=== PATIENT | female | born 1985 | race Caucasian/White ===

== ENCOUNTER 2018-07-09 11:12 | Emergency (ER) | payer BC ==
[~2018-07-09] VITALS: Ht 167.6 cm; Wt 85.0 kg
[2018-07-09 13:30] LABS: CHLORIDE 107 mEq/L (98-107)
[2018-07-09 13:35] LABS: BASOPHILS % 0.9 % (0.0-2.0); EOSINOPHILS % 2.7 % (0.0-5.0); HEMATOCRIT. 39.9 % (36.0-48.0); HEMOGLOBIN. 13.5 g/dL (12.0-16.0); LYMPHOCYTES % 27.5 % (20.0-50.0); MEAN CORPUSCULAR HEMOGLOBIN 28.4 pg (28.0-32.0); MEAN CORPUSCULAR VOLUME 84.1 fL (81.0-99.0); MEAN PLATELET VOLUME 7.3 fl (7.4-10.4); MONOCYTES % 6.5 % (2.0-8.0); NEUTROPHILS % 62.4 % (40.0-76.0); PLATELET 275 x1000/uL (130-400); RED BLOOD CELL COUNT 4.75 mill/uL (4.2-5.4); RED CELL DISTRIBUTION WIDTH 14.1 % (11.6-14.6)
[2018-07-09 13:53] LABS: B-HCG QUANTITATIVE 11653 mIU/mL (<3)
[2018-07-09 13:55] VITALS: BP 128/86
== END 2018-07-09 14:32 | disposition home or self-care (01) ==
LOC: ER 11:46
DX: O02.1 Missed abortion (principal); J45.909 Unspecified asthma, uncomplicated; Z3A.08 8 weeks gestation of pregnancy
CPT/HCPCS: 36415; 76801; 81025; 84702; 86850; 86900; 99284

== ENCOUNTER 2018-08-03 07:49 | Inpatient (IN) | payer BC ==
[~2018-08-03] VITALS: Ht 170.2 cm; Wt 89.8 kg
[2018-08-03] MEDS ORDERED: ACETAMINOPHEN 325MG TABLET PO STA (09:42)
[2018-08-03] MEDS ORDERED: PIPERACILLIN/TAZ 3.375G PREMIX 50 ML IV ONE (09:45)
[2018-08-03] MEDS ORDERED: SODIUM CHLORIDE 0.9% 1000ML BAG (SEPSIS BOLUS) IV ONE (09:45)
[2018-08-03] MEDS ORDERED: VANCOMYCIN 1 G PREMIX 200 ML IV ONE (09:45)
[2018-08-03 11:09] LABS: HEMATOCRIT. 41.8 % (36.0-48.0); HEMOGLOBIN. 13.8 g/dL (12.0-16.0); MEAN CORPUSCULAR HEMOGLOBIN 27.4 pg (28.0-32.0); MEAN CORPUSCULAR VOLUME 83.1 fL (81.0-99.0); MEAN PLATELET VOLUME 7.4 fl (7.4-10.4); PLATELET 249 x1000/uL (130-400); RED BLOOD CELL COUNT 5.03 mill/uL (4.2-5.4); RED CELL DISTRIBUTION WIDTH 13.7 % (11.6-14.6)
[2018-08-03 11:18] LABS: INR 1.2; PROTHROMBIN TIME 12.4 sec (9.1-11.1)
[2018-08-03 11:38] LABS: PLATELET ESTIMATE NORMAL
[2018-08-03 11:39] LABS: CHLORIDE 103 mEq/L (98-107)
[2018-08-03 11:43] LABS: HCG SCREEN NEGATIVE
[2018-08-03 12:01] LABS: CLARITY URINE TURBID (CLEAR); COLOR URINE DARK YELLOW (YELLOW); KETONES URINE NEGATIVE (NEGATIVE); LEUKOCYTE ESTERASE URINE 1+ (NEGATIVE); NITRITE URINE NEGATIVE (NEGATIVE); OCCULT BLOOD URINE 3+ (NEGATIVE); PH URINE 5.5 (4.5-8.0); PROTEIN URINE 3+ (NEGATIVE); SPECIFIC GRAVITY URINE 1.039 (1.005-1.030)
[2018-08-03] MEDS ORDERED: KETOROLAC 30MG/ML VIAL IV ONE (13:00)
[2018-08-03] MEDS ORDERED: ZOLPIDEM TARTRATE 5MG TABLET PO PRN (13:15)
[2018-08-03] MEDS ORDERED: DOCUSATE SODIUM 100MG CAPSULE PO PRN (13:15)
[2018-08-03] MEDS ORDERED: ACETAMINOPHEN 325MG TABLET PO PRN (13:15)
[2018-08-03] MEDS ORDERED: NA PHOS,M-B/NA PHOS,DI-BA ENEMA 118ML PR PRN (13:15)
[2018-08-03] MEDS ORDERED: IPRATROPIUM/ALBUTEROL 0.5-3(2.5)MG/3ML NEB INH PRN (13:15)
[2018-08-03] MEDS ORDERED: GUAIFENESIN 200MG/10ML SUGAR FREE UDC PO PRN (13:15)
[2018-08-03] MEDS ORDERED: LORAZEPAM 0.5MG TABLET PO PRN (13:15)
[2018-08-03] MEDS ORDERED: ONDANSETRON HCL 4MG/2ML INJ IV PRN (13:15)
[2018-08-03] MEDS ORDERED: MAGNESIUM/ALUMINUM HYDROXIDE/SIMETHICONE 30ML UDC PO PRN (13:15)
[2018-08-03] MEDS ORDERED: NITROGLYCERIN 0.4MG TABLET SL SL PRN (13:15)
[2018-08-03] MEDS ORDERED: CLONIDINE 0.1MG TABLET PO PRN (13:15)
[2018-08-03] MEDS ORDERED: ACETAMINOPHEN 325MG TABLET ONE (14:40)
[2018-08-03 21:10] LABS: *AMPHETAMINES SCREEN URINE NEGATIVE (NEGATIVE); *BARBITURATES SCREEN URINE NEGATIVE (NEGATIVE); *BENZODIAZEPINES SCREEN URINE NEGATIVE (NEGATIVE); *COCAINE SCREEN URINE NEGATIVE (NEGATIVE); METHADONE URINE SCREEN NEGATIVE (NEGATIVE); OPIATES URINE SCREEN NEGATIVE (NEGATIVE)
[2018-08-03 21:11] LABS: CANNABINOID URINE SCREEN NEGATIVE (NEGATIVE); PHENCYCLIDINE URINE SCREEN NEGATIVE (NEGATIVE)
[2018-08-03] MEDS ORDERED: PIPERACILLIN/TAZ 3.375G PREMIX 50 ML IV NR (21:30)
[2018-08-03] MEDS: FAMOTIDINE 20MG TABLET PO SCH (21:31)
[2018-08-03 21:40] VITALS: BP 110/71
[2018-08-03 22:00] VITALS: BP 110/71
[2018-08-03] MEDS: SODIUM CHLORIDE 0.9% 1,000 ML IV SCH (23:23)
[2018-08-03] MEDS: ASCORBIC ACID 500 MG TABLET PO SCH (23:23)
[2018-08-04] VITALS: BP 107/59
[2018-08-04] MEDS: VANCOMYCIN 1 G PREMIX 200 ML IV SCH ×3 (00:04→14:28)
[2018-08-04] MEDS: KETOROLAC 15MG/ML VIAL IV PRN ×2 (02:23→21:14)
[2018-08-04 04:00] VITALS: BP 99/56
[2018-08-04] MEDS: PIPERACILLIN/TAZ 3.375G PREMIX 50 ML IV SCH ×2 (05:14→13:03)
[2018-08-04 08:00] VITALS: BP 110/70
[2018-08-04] MEDS: ASCORBIC ACID 500 MG TABLET PO SCH ×2 (09:27→21:15)
[2018-08-04] MEDS: ZINC SULFATE 220 MG ( 50 ) CAPSULE PO SCH (09:27)
[2018-08-04] MEDS: FAMOTIDINE 20MG TABLET PO SCH ×2 (09:27→21:15)
[2018-08-04] MEDS: SODIUM CHLORIDE 0.9% 1,000 ML IV SCH (09:28)
[2018-08-04 12:00] VITALS: BP 122/87
[2018-08-04 16:00] VITALS: BP 125/78
[2018-08-04 17:48] LABS: CHLORIDE 112 mEq/L (98-107)
[2018-08-04 17:56] LABS: VANCOMYCIN TROUGH 38.6 ug/mL (5.0-10.0)
[2018-08-04 20:00] VITALS: BP 117/85
[2018-08-04] MEDS: DIPHENHYDRAMINE 25MG CAPSULE PO PRN (21:15)
[2018-08-05] VITALS: BP 96/62
[2018-08-05] MEDS: VANCOMYCIN 1 G PREMIX 200 ML IV SCH ×2 (02:41→05:23)
[2018-08-05] MEDS: PIPERACILLIN/TAZ 3.375G PREMIX 50 ML IV SCH ×3 (02:41→16:32)
[2018-08-05] MEDS: SODIUM CHLORIDE 0.9% 1,000 ML IV SCH ×2 (02:42→16:33)
[2018-08-05 04:00] VITALS: BP 106/73
[2018-08-05 05:56] LABS: CHLORIDE 112 mEq/L (98-107)
[2018-08-05 06:05] LABS: VANCOMYCIN TROUGH 29.8 ug/mL (5.0-10.0)
[2018-08-05 08:22] VITALS: BP 108/71
[2018-08-05] MEDS: ASCORBIC ACID 500 MG TABLET PO SCH ×2 (08:23→21:56)
[2018-08-05] MEDS: ZINC SULFATE 220 MG ( 50 ) CAPSULE PO SCH (08:23)
[2018-08-05] MEDS: TRAMADOL 50MG TABLET PO PRN (08:23)
[2018-08-05] MEDS: FAMOTIDINE 20MG TABLET PO SCH ×2 (08:23→21:56)
[2018-08-05] MEDS: DIPHENHYDRAMINE 25MG CAPSULE PO PRN (09:42)
[2018-08-05 12:30] VITALS: BP 100/65
[2018-08-05] MEDS: SUCRALFATE 1G TABLET PO SCH ×3 (12:59→21:56)
[2018-08-05 16:00] VITALS: BP 110/72
[2018-08-05] MEDS ORDERED: PIPERACILLIN/TAZOBACTAM 3.375 G in DEXTROSE 5% WATER 50 ML IV SCH (16:00)
[2018-08-05] MEDS: VANCOMYCIN 1250MG in DEXTROSE 5% WATER 250ML IV SCH (17:20)
[2018-08-05 20:00] VITALS: BP 108/67
[2018-08-06] VITALS (7 sets, daily range): BP systolic 100–121; BP diastolic 58–77
[2018-08-06] MEDS: PIPERACILLIN/TAZ 3.375G PREMIX 50 ML IV SCH ×3 (00:31→16:17)
[2018-08-06] MEDS: SODIUM CHLORIDE 0.9% 1,000 ML IV SCH ×3 (00:32→20:30)
[2018-08-06] MEDS: VANCOMYCIN 1250MG in DEXTROSE 5% WATER 250ML IV SCH ×2 (05:28→19:09)
[2018-08-06] MEDS: KETOROLAC 15MG/ML VIAL IV PRN (05:33)
[2018-08-06] MEDS: FAMOTIDINE 20MG TABLET PO SCH ×2 (10:20→21:12)
[2018-08-06] MEDS: SUCRALFATE 1G TABLET PO SCH ×4 (10:20→21:12)
[2018-08-06] MEDS: ASCORBIC ACID 500 MG TABLET PO SCH ×2 (10:20→21:12)
[2018-08-06] MEDS: ZINC SULFATE 220 MG ( 50 ) CAPSULE PO SCH (10:20)
[2018-08-06 10:35] LABS: BASOPHILS % 0.7 % (0.0-2.0); HEMATOCRIT. 34.8 % (36.0-48.0); HEMOGLOBIN. 11.5 g/dL (12.0-16.0); LYMPHOCYTES % 37.7 % (20.0-50.0); MEAN CORPUSCULAR HEMOGLOBIN 27.7 pg (28.0-32.0); MEAN CORPUSCULAR VOLUME 83.2 fL (81.0-99.0); MONOCYTES % 6.3 % (2.0-8.0); NEUTROPHILS % 52.3 % (40.0-76.0); PLATELET 239 x1000/uL (130-400); RED BLOOD CELL COUNT 4.17 mill/uL (4.2-5.4); RED CELL DISTRIBUTION WIDTH 14.2 % (11.6-14.6)
[2018-08-06 10:36] LABS: CHLORIDE 111 mEq/L (98-107)
[2018-08-06] MEDS: TRAMADOL 50MG TABLET PO PRN (15:01)
[2018-08-07] VITALS: BP 109/67
[2018-08-07] MEDS: PIPERACILLIN/TAZ 3.375G PREMIX 50 ML IV SCH ×2 (00:52→08:00)
[2018-08-07 04:00] VITALS: BP 99/59
[2018-08-07] MEDS: VANCOMYCIN 1250MG in DEXTROSE 5% WATER 250ML IV SCH (06:02)
[2018-08-07] MEDS: SODIUM CHLORIDE 0.9% 1,000 ML IV SCH (06:03)
[2018-08-07 08:34] VITALS: BP 124/82
[2018-08-07] MEDS: SUCRALFATE 1G TABLET PO SCH (08:36)
[2018-08-07] MEDS: ASCORBIC ACID 500 MG TABLET PO SCH (08:36)
[2018-08-07] MEDS: FAMOTIDINE 20MG TABLET PO SCH (08:36)
[2018-08-07] MEDS: ZINC SULFATE 220 MG ( 50 ) CAPSULE PO SCH (08:36)
[2018-08-07] MEDS: KETOROLAC 15MG/ML VIAL IV PRN (08:52)
[2018-08-07 10:33] VITALS: BP 124/80
== END 2018-08-07 11:30 | disposition home or self-care (01) | DRG 872 ==
LOC: ER 11:22 → 8WST 12:46 → EDBEDREQ 12:51 → ENRESERV 21:11
PROVIDERS: ADMIT Internal Medicine; ATTEND Internal Medicine
DX: A41.9 Sepsis, unspecified organism (principal); L03.211 Cellulitis of face; N39.0 Urinary tract infection, site not specified; E87.1 Hypo-osmolality and hyponatremia; L03.811 Cellulitis of head [any part, except face]; K76.0 Fatty (change of) liver, not elsewhere classified; J45.909 Unspecified asthma, uncomplicated
CPT/HCPCS: 36415; 71045; 80048; 80076; 80202; 80305; 81025; 82248; 83036; 83605; 84145; 84484; 84702; 84703; 87804; 93005; 96365; 96366; 96375; 99291; J1885; J2405; J2543; J3370; J7030; J7060; Q0163

== ENCOUNTER 2021-09-14 17:51 | Emergency (ER) | payer BC ==
[~2021-09-14] VITALS: Ht 167.6 cm; Wt 100.0 kg
[2021-09-14 18:04] VITALS: BP 124/82
[2021-09-14] MEDS ORDERED: PREDNISONE 20MG TABLET PO STA ×2 (18:35→22:51)
[2021-09-14] MEDS ORDERED: IPRATROPIUM BROMIDE (0.02%) 0.5MG/2.5ML NEB HHN STA ×2 (18:35→22:51)
[2021-09-14] MEDS ORDERED: ALBUTEROL (0.083%) 2.5MG/3ML NEB HHN STA ×2 (18:35→22:51)
[2021-09-14] MEDS ORDERED: ALBU6.7H9 INH (23:44)
== END 2021-09-15 00:23 | disposition home or self-care (01) ==
LOC: ER 17:51
DX: J45.909 Unspecified asthma, uncomplicated (principal)
CPT/HCPCS: 71045; 94640; 99283; Z7610

== ENCOUNTER 2023-10-07 21:56 | Emergency (ER) | payer BC ==
[~2023-10-07] VITALS: Ht 167.6 cm; Wt 77.0 kg
[~2023-10-07 21:56] MED LIST: ALBU6.7H3 INH
[2023-10-07 22:35] VITALS: O2SAT 96
[2023-10-08] MEDS: TETANUS, DIPHTHERIA, PERTUSSIS VAC/PF 0.5ML (>10YR OLD) IM ONE (04:43)
[2023-10-08] MEDS: IBUPROFEN 600MG TABLET PO ONE (04:44)
[2023-10-08] MEDS: CEFTRIAXONE SODIUM 1G VIAL IM ONE (04:44)
[2023-10-08 04:45] VITALS: BP 130/84; PULSE 71; RESP 18; TEMP 97.7
[2023-10-08] MEDS: BACITRACIN ZINC OINT UDPKT TOP ONE (04:45)
[2023-10-08] MEDS ORDERED: IBUP-2028 MT (05:00)
[2023-10-08] MEDS ORDERED: AMOX1TAB16 MT (05:00)
== END 2023-10-08 05:24 | disposition home or self-care (01) ==
LOC: ER 21:56
DX: S61.251A Open bite of left index finger without damage to nail, initial encounter (principal); J45.909 Unspecified asthma, uncomplicated; W54.0XXA Bitten by dog, initial encounter; Y93.89 Activity, other specified; Y92.89 Other specified places as the place of occurrence of the external cause; Y99.8 Other external cause status
CPT/HCPCS: 29130; 99284; 73140; 90715; 90471; 96372; J0696; Z7610

== ENCOUNTER 2024-06-13 18:25 | Emergency (ER) | payer SELFPAY ==
[~2024-06-13] VITALS: Ht 167.6 cm; Wt 127.0 kg
[~2024-06-13 18:25] MED LIST changes: +AMOX1TAB16 MT; +IBUP-2028 MT
[2024-06-13 18:34] VITALS: O2SAT 96
[2024-06-13] MEDS: ACETAMINOPHEN 325MG TABLET PO ONE (21:50)
[2024-06-13] MEDS: DEXAMETHASONE 10 MG/ML VIAL IM ONE (21:50)
[2024-06-14 00:03] LABS: HCG SCREEN NEGATIVE
[2024-06-14] MEDS: SODIUM CHLORIDE 0.9% 1,000 ML IV ONE (00:28)
[2024-06-14] MEDS: METOCLOPRAMIDE HCL 10MG/2ML VIAL IV ONE (00:28)
[2024-06-14] MEDS: AMOXICILLIN 500MG CAPSULE PO ONE (00:29)
[2024-06-14] MEDS ORDERED: AMOX-494 MT (01:36)
[2024-06-14] MEDS ORDERED: IBUP-2028 MT (01:36)
[2024-06-14 02:13] VITALS: BP 129/89; PULSE 101; RESP 14; TEMP 37.00296; O2SAT 99
== END 2024-06-14 02:15 | disposition home or self-care (01) ==
LOC: ER 18:25
DX: J02.0 Streptococcal pharyngitis (principal); R51.9 Headache, unspecified; H92.03 Otalgia, bilateral; J02.9 Acute pharyngitis, unspecified; J45.909 Unspecified asthma, uncomplicated; Z82.49 Family history of ischemic heart disease and other diseases of the circulatory system; Z79.52 Long term (current) use of systemic steroids
CPT/HCPCS: 84703; 70450; 96372; 99285; 96374; J1100; J2765; J7030; Z7610

== ENCOUNTER 2024-09-12 23:20 | Emergency (ER) | payer BC, MEDICAID ==
[~2024-09-12] VITALS: Ht 175.3 cm; Wt 115.0 kg
[~2024-09-12 23:20] MED LIST changes: +AMOX-494 MT
[2024-09-12 23:37] VITALS: O2SAT 99
[2024-09-13 00:57] LABS: BASOPHILS % 0.7 % (0.0-2.0); EOSINOPHILS % 3.1 % (0.0-5.0); HEMOGLOBIN. 13.3 g/dL (12.0-16.0); LYMPHOCYTES % 27.4 % (20.0-50.0); MEAN CORPUSCULAR HGB CONC 34.1 g/dL (31.0-37.0); MEAN CORPUSCULAR VOLUME 82.1 fL (81.0-99.0); MONOCYTES % 5.3 % (2.0-8.0); NEUTROPHILS % 63.5 % (40.0-76.0); PLATELET 332 x1000/uL (130-400); RED BLOOD CELL COUNT 4.75 mill/uL (4.2-5.4); RED CELL DISTRIBUTION WIDTH 14.3 % (11.6-14.6)
[2024-09-13] MEDS: ACETAMINOPHEN 325MG TABLET PO ONE (01:07)
[2024-09-13] MEDS: LIDOCAINE 5% PATCH TOP SCH (01:07)
[2024-09-13 01:10] LABS: CHLORIDE 104 mEq/L (98-107); SODIUM 138 mEq/L (136-145)
[2024-09-13 01:11] LABS: CARBON DIOXIDE 28 mEq/L (21-32)
[2024-09-13 01:16] LABS: CREATININE 0.7 mg/dL (0.6-1.0); GLUCOSE 188 mg/dL (70-105); UREA NITROGEN BLOOD 10 mg/dL (9-23)
[2024-09-13 01:21] LABS: TROPONIN I HIGH SENSITIVITY < 4 ng/L (3.0-34)
[2024-09-13 01:42] LABS: HCG SCREEN NEGATIVE
[2024-09-13] MEDS ORDERED: NAPR-1176 MT (02:09)
[2024-09-13] MEDS ORDERED: LIDO700A15 TP (02:09)
[2024-09-13 02:20] VITALS: BP 126/84; PULSE 92; RESP 18; TEMP 36.6; O2SAT 97
[2024-09-13 02:35] LABS: CLARITY URINE CLEAR (CLEAR); COLOR URINE YELLOW (YELLOW); GLUCOSE URINE NEGATIVE (NEGATIVE); KETONES URINE NEGATIVE (NEGATIVE); LEUKOCYTE ESTERASE URINE NEGATIVE (NEGATIVE); NITRITE URINE NEGATIVE (NEGATIVE); OCCULT BLOOD URINE NEGATIVE (NEGATIVE); PH URINE 5.5 (4.5-8.0); PROTEIN URINE NEGATIVE (NEGATIVE)
== END 2024-09-13 02:26 | disposition home or self-care (01) ==
LOC: ER 23:20
DX: R07.89 Other chest pain (principal); J45.909 Unspecified asthma, uncomplicated; Z79.1 Long term (current) use of non-steroidal anti-inflammatories (NSAID); Z79.899 Other long term (current) drug therapy
CPT/HCPCS: 36415; 71045; 80048; 81003; 84484; 84703; 85025; 85379; 93005; 99285